=== PATIENT | female | born 1965 | race Two or more races ===

== ENCOUNTER 2021-01-23 07:13 | Outpatient (CLI) | payer OTHER | END 2021-01-23 07:20 | disposition home or self-care (01) | LOC: LAB 07:13 | PROVIDERS: ATTEND General Practice | DX: M94.0 Chondrocostal junction syndrome [Tietze] (principal); Z00.01 Encounter for general adult medical examination with abnormal findings; M62.830 Muscle spasm of back; Z12.31 Encounter for screening mammogram for malignant neoplasm of breast; Z12.11 Encounter for screening for malignant neoplasm of colon; Z12.4 Encounter for screening for malignant neoplasm of cervix; Z13.228 Encounter for screening for other metabolic disorders; Z13.1 Encounter for screening for diabetes mellitus; F17.200 Nicotine dependence, unspecified, uncomplicated; Z13.21 Encounter for screening for nutritional disorder; Z13.0 Encounter for screening for diseases of the blood and blood-forming organs and certain disorders involving the immune mechanism; Z11.3 Encounter for screening for infections with a predominantly sexual mode of transmission; Z11.4 Encounter for screening for human immunodeficiency virus [HIV]; Z11.8 Encounter for screening for other infectious and parasitic diseases ==

== ENCOUNTER 2021-01-23 07:56 | Outpatient (CLI) | payer OTHER | END 2021-01-23 08:14 | disposition home or self-care (01) | LOC: MAMO-SONO 07:56 | PROVIDERS: ATTEND General Practice | DX: Z12.31 Encounter for screening mammogram for malignant neoplasm of breast (principal) ==

== ENCOUNTER → 2021-01-24 10:07 | Outpatient (CLI) | payer OTHER | END | disposition home or self-care (01) | LOC: LAB 10:07 | PROVIDERS: ATTEND General Practice | DX: Z00.01 Encounter for general adult medical examination with abnormal findings (principal); M94.0 Chondrocostal junction syndrome [Tietze]; M62.830 Muscle spasm of back; Z12.31 Encounter for screening mammogram for malignant neoplasm of breast; Z12.11 Encounter for screening for malignant neoplasm of colon; Z12.4 Encounter for screening for malignant neoplasm of cervix; Z13.220 Encounter for screening for lipoid disorders; Z13.228 Encounter for screening for other metabolic disorders; Z13.1 Encounter for screening for diabetes mellitus; F17.220 Nicotine dependence, chewing tobacco, uncomplicated; Z13.0 Encounter for screening for diseases of the blood and blood-forming organs and certain disorders involving the immune mechanism; Z11.3 Encounter for screening for infections with a predominantly sexual mode of transmission; Z11.4 Encounter for screening for human immunodeficiency virus [HIV]; Z11.8 Encounter for screening for other infectious and parasitic diseases; E66.8 Other obesity; Z68.34 Body mass index [BMI] 34.0-34.9, adult ==

== ENCOUNTER 2021-08-12 08:40 | Outpatient (CLI) | payer OTHER | END 2021-08-12 08:50 | disposition home or self-care (01) | LOC: RAD 08:40 | PROVIDERS: ATTEND Specialist | DX: M77.32 Calcaneal spur, left foot (principal); G89.11 Acute pain due to trauma ==